=== PATIENT | male | born 1980 | race Caucasian/White ===

== ENCOUNTER 2017-12-01 23:58 | Emergency (ER) | payer OTHER ==
[~2017-12-01] VITALS: Ht 190.5 cm; Wt 84.1 kg
[~2017-12-01 23:58] MED LIST: FLEXERIL PO; NAPROSYN250 MG PO; TRAMADOL HCL50 MG PO; TYLENOL # 31 TAB PO; ULTRAM50 MG PO
[2017-12-02 00:52] LABS: HEMOGLOBIN 15.6 g/dl (14.0-18.0); IMMATURE GRANULOCYTES 0.5 % (0.0-1.0); MEAN CELL VOLUME 84.3 fL CALC (80.0-100.0); MEAN CORPUSCULAR HGB 29.9 pG CALC (26.0-32.0); MEAN CORPUSCULAR HGB CONC 35.5 g/L CALC (32.0-36.0); NEUT# 6.04 thou/uL (1.82-7.42); RED BLOOD COUNT 5.22 mill/uL (4.70-6.10); RED CELL DISTRI WIDTH 12.9 % (11.5-15.5)
[2017-12-02 00:57] LABS: URINE BILIRUBIN - DIPSTICK NEGATIVE (NEGATIVE); URINE BLOOD DIPSTICK LARGE (NEGATIVE); URINE COLOR YELLOW; URINE GLUCOSE - DIPSTICK NEGATIVE (NEGATIVE); URINE KETONE NEGATIVE (NEGATIVE); URINE LEUK ESTERASE NEGATIVE (NEGATIVE); URINE NITRITE - DIPSTICK NEGATIVE (Negative); URINE PH >=9.0 (4.5-8.0); URINE PROTEIN - DIPSTICK 30 mg/dL (NEG-TRACE); URINE UROBILINOGEN - DIPSTICK 0.2 E.U./dL (0.2)
[2017-12-02 01:01] LABS: URINE CLARITY TURBID
[2017-12-02 01:03] LABS: URINE AMORPH SEDIMENT MODERATE hpf (NONE-FER); URINE BACTERIA FEW hpf; URINE MUCUS MODERATE hpf (NONE-FEW); URINE RBC >100 RBC/hpf (0-5); URINE SQUAMOUS EPITHELIAL CELL FEW EPI/hpf (0-FEW)
[2017-12-02 01:10] LABS: ALBUMIN 4.9 g/dL (3.2-5.0); ALKALINE PHOSPHATASE 98 u/l (38-126); AMYLASE 48 u/l (30-110); ANION GAP 18 (6-22 (CALC)); BILIRUBIN, TOTAL 1.8 mg/dL (0.0-1.4); BUN 22 mg/dL (9-20); BUN/CREATININE RATIO 20 (12-20 (CALC)); CALCIUM 10.6 mg/dL (8.4-10.2); CARBON DIOXIDE 25 mmol/l (22-30); CHLORIDE 108 mmol/l (95-108); CREATININE 1.1 mg/dL (0.7-1.3); GFR > 60 ML/MIN (>=60 (CALC)); GFR FOR AFR.AMER. > 60 ML/MIN (>=60 (CALC)); GLUCOSE 123 mg/dL (75-110); LIPASE 54 u/l (23-300); POTASSIUM 3.7 mmol/l (3.5-5.1); SGOT/AST 25 u/l (17-59); SGPT/ALT 32 u/l (21-72); SODIUM 147 mmol/l (137-146)
[2017-12-02] MEDS ORDERED: ULTRAM50 M1 PO (01:47)
[2017-12-02] MEDS ORDERED: CIPROFLOXACN500 MG PO (01:47)
[2017-12-02 02:00] VITALS: BP 158/99
== END 2017-12-02 02:00 | disposition home or self-care (01) | DRG 392 ==
LOC: ED 23:58
PROVIDERS: Emergency Medicine
DX: R10.31 Right lower quadrant pain (principal); N20.0 Calculus of kidney; N39.0 Urinary tract infection, site not specified; R10.11 Right upper quadrant pain; R10.9 Unspecified abdominal pain; Z87.442 Personal history of urinary calculi; R11.0 Nausea